=== PATIENT | female | born 1935 | race Two or more races ===

== ENCOUNTER 2019-09-21 07:54 | Outpatient (CLI) | payer OTHER | END 2019-09-21 08:04 | disposition home or self-care (01) | LOC: NUCLEAR 07:54 | PROVIDERS: ATTEND Internal Medicine Gastroenterology | DX: K81.1 Chronic cholecystitis (principal) | CPT/HCPCS: 78227; A9537; J2805 ==

== ENCOUNTER 2019-10-12 07:23 | Outpatient (CLI) | payer OTHER | END 2019-10-12 07:26 | disposition home or self-care (01) | LOC: NUCLEAR 07:23 | PROVIDERS: ATTEND Internal Medicine Gastroenterology | DX: K31.84 Gastroparesis (principal) | CPT/HCPCS: 78264; A9541 ==